=== PATIENT | male | born 1945 | race Caucasian/White ===

== ENCOUNTER 2018-05-17 09:37 | Outpatient (CLI) | payer MEDICARE | END 2018-05-17 09:38 | disposition home or self-care (01) | LOC: RAD 09:37 ==

== ENCOUNTER 2018-05-26 11:30 | Outpatient (CLI) | payer MEDICARE | END 2018-05-26 11:31 | disposition home or self-care (01) | LOC: LAB 11:30 ==

== ENCOUNTER 2018-06-02 08:12 | Outpatient (CLI) | payer MEDICARE | END 2018-06-02 08:13 | disposition home or self-care (01) | LOC: RAD 08:12 ==

== ENCOUNTER 2018-06-21 11:55 | Day surgery (SDC) | payer MEDICARE ==
[2018-06-19 14:11] VITALS: BMI 25.5
[2018-06-21 12:51] LABS: BASO # 0.02 K/mm3 (0.0-2.0); BASO % 0.4 % (0.0-3.0); EOS # 0.1 (0.0-0.7); LYMPH # 1.4 (1.2-3.4); MEAN CELL VOLUME 86.9 fl (80.0-105.0); MEAN CORPUSCULAR HEMOGLOBIN 28.6 pg (25.0-35.0); MEAN PLATELET VOLUME 10.4 fl (7.0-11.0); MONO # 0.4 (0.1-0.6); MONO % 8.6 % (1.0-6.0); RBC 4.19 10^6/uL (3.5-6.1); RED CELL DISTRIBUTION WIDTH 13.7 % (11.5-14.5); WHITE BLOOD COUNT 4.9 10^3/uL (4.5-11.0)
[2018-06-21 13:02] LABS: INR 0.95; PROTHROMBIN TIME 10.7 SECONDS (9.4-12.5)
[2018-06-21 13:05] VITALS: O2SAT 98
[2018-06-21 13:20] LABS: BLOOD UREA NITROGEN 14 mg/dL (7-21); CALCIUM 9.3 mg/dL (8.4-10.5); GFR NON-AFRICAN AMERICAN 50
[2018-06-21] MEDS ORDERED: Lidocaine 2% Inj (20ml) ONE (14:54)
[2018-06-21] MEDS ORDERED: Iodixanol 320 MG/ML 100 ML BOTTLE IV ONE (14:55)
[2018-06-21] MEDS ORDERED: Iodixanol 320 MG/ML 200 ML BOTTLE IV ONE (14:55)
[2018-06-21] MEDS ORDERED: Nitroglycerin 50mg in D5W 50 MG/250 ML BOTTLE IV ONE (14:55)
[2018-06-21] MEDS ORDERED: Midazolam 2 MG/2 ML VIAL ONE ×2 (17:29→17:44)
[2018-06-21] MEDS ORDERED: Oxycodone/Acetaminophen 5/325 mg Tab PO PRN (19:12)
[2018-06-21] MEDS ORDERED: Sodium Chloride 0.45% 1,000 ML IV SCH (19:15)
--- NOTE | 2018-06-21 19:33 | VASCULAR ---
Date of service: 06/21/2018 PROCEDURE: 1. Abdominal aortogram and bilateral lower extremity runoff with left selective views. 2. Mid to distal left SFA silver Hawk atherectomy and drug-eluting balloon angioplasty HISTORY: Peripheral vascular disease. Short distance and lifestyle limiting left calf claudication PHYSICIAN(S): Waqas Harris M.D. TECHNIQUE: The relative risks and indications of the procedure were explained to the patient and consent obtained. The patient was hydrated prior to the procedure and the appropriate labs drawn. The patient was placed supine on the arteriogram table and the right groin prepped and draped in the usual sterile fashion. Conscious sedation and monitoring were provided throughout the procedure by a nurse. Via a right common femoral artery approach, a 5 [place] sheath was placed in the right groin. Through the sheath and over a guidewire, a 5 [place] flush catheter was placed in the abdominal aorta at the level of the renal arteries and a PA DSA abdominal aortogram performed. The catheter was pulled down to the aortic bifurcation and bilateral oblique DSA pelvic arteriograms performed. Overlapping bilateral lower extremity DSA arteriograms were obtained from the inguinal ligaments to the ankles. A 0.035 angled Glidewire was advanced over the bifurcation and placed in the mid left SFA. A 7 [place] 45 cm destination sheath was placed in the left common femoral artery. The multifocal disease in the mid to distal left SFA was crossed with an angled glidewire and 5 [place] catheter. Distal imaging was obtained. A 0.014 support wire was placed. Silver Hawk atherectomy of the mid to distal left SFA was performed with and LS catheter. Six passes were performed. The mid to distal left SFA was then dilated with a 7 mm x 80 mm drug-eluting balloon. A good angiographic result was obtained. No stent was required. Completion angiograms were obtained. The sheath was removed hemostasis obtained with a Perclose device. The patient tolerated the procedure well. FINDINGS: There are single renal arteries bilaterally which are widely patent and normal in appearance. The nephrograms are symmetric in appearance. The infrarenal abdominal aorta is widely patent without a radiographically significant stenosis. The aortic bifurcation is widely patent. The common and external iliac arteries are normal in appearance without a significant stenosis. The internal iliac arteries are patent bilaterally. Right lower extremity: The right common femoral artery is patent. The right profunda femoral artery is patent. The right superficial femoral artery is diffusely diseased with multiple mild stenoses. There is a moderate tapered stenosis of the right popliteal artery. There is 2 vessel right tibial runoff via the dominant posterior tibial artery and a small diseased peroneal artery. The right anterior tibial artery occludes proximally.. Left lower extremity: Left common femoral artery is patent with mild to moderate posterior plaque.. The left profunda femoral artery is hypertrophied.. The left superficial femoral artery is calcified with multi focal severe disease in its mid to distal segments.. There is a mild to moderate smooth stenosis of the mid left popliteal artery. There is 3 vessel runoff with a dominant left posterior tibial artery. There is diffuse severe disease of the left anterior tibial artery. The left peroneal artery is patent to the ankle IMPRESSION: 1.Successful mid to distal left SFA silver Hawk atherectomy and drug-eluting balloon angioplasty 2. Bilateral tibial occlusive disease.
[2018-06-21 22:56] VITALS: RESP 20; TEMP 98
[2018-06-21 23:06] VITALS: BP 142/82; PULSE 70
== END 2018-06-21 22:30 | disposition home or self-care (01) ==
LOC: SDSVAS 11:55 → 2RSO 20:37 → SDSVAS 22:30
PROVIDERS: ATTEND Radiology Vascular & Interventional Radiology
DX: I70.212 Atherosclerosis of native arteries of extremities with intermittent claudication, left leg (principal)
CPT/HCPCS: 36415; 37225; 75625; 75716; 80048; 85025; 85610; 85730; 99152; 99153; C1714; C1725 ×2; C1760; C1769 ×3; C1887 ×2; C1894; J1644 ×2; J2250; J2405; J3010; J7030; Q9966; Q9967